=== PATIENT | female | born 1985 | race Caucasian/White ===

== ENCOUNTER 2020-12-04 10:47 | Emergency (ER) | payer BC ==
[~2020-12-04] VITALS: Ht 154.9 cm; Wt 54.4 kg
[2020-12-04] MEDS ORDERED: SODIUM CHLORIDE 0.9% 50ML 50 ML ONE (11:15)
[2020-12-04] MEDS ORDERED: IOPAMIDOL 370 MG/ML 200 ML INFUS..BTL INJ ONE (11:16)
[2020-12-04 13:11] VITALS: BP 101/67
[2020-12-04] MEDS ORDERED: PANTOPRAZOLE SO40 MG PO (13:11)
[2020-12-04] MEDS ORDERED: ZITHROMAX250 MG PO (13:11)
== END 2020-12-04 13:14 | disposition home or self-care (01) ==
LOC: FSED 11:05
DX: R07.9 Chest pain, unspecified (principal)
CPT/HCPCS: 71260; 80053; 82553; 84484; 85025; 93005; 99283; Q9967